=== PATIENT | male | born 1955 | race Caucasian/White ===

== ENCOUNTER 2022-10-25 10:55 | Emergency (ER) | payer MEDICARE, MEDICAID, SELFPAY ==
--- NOTE | ~2022-10-25 | XR_ITS ---
EXAMINATION: XR KNEE, LEFT CLINICAL INFORMATION: Left knee pain COMPARISON: None available. TECHNIQUE: Four views of the left knee. FINDINGS: There is mild narrowing cough medial compartment of left knee joint with marginal spurring at the endplates of lateral tibial plateau. There is narrowing of patellofemoral compartment but no joint effusion. There is diffuse osteopenia. Vascular calcifications seen in the soft tissues. XR/XR knee LT 4V IMPRESSION: Diffuse osteopenia and tricompartmental degenerative changes
--- NOTE | ~2022-10-25 | XR_ITS ---
EXAMINATION: XR KNEE, RIGHT CLINICAL INFORMATION: Pain COMPARISON: None available. TECHNIQUE: Four views of the right knee. FINDINGS: There is diffuse osteopenia and mild narrowing cough medial compartment of right knee joint. Marginal spurring seen at the medial and lateral tibial plateaus. There is narrowing of patellofemoral compartment. No joint effusion seen. No evidence of fractures. XR/XR knee RT 4V IMPRESSION: Tricompartmental degenerative changes more prominent in the medial and patellofemoral compartments.
--- NOTE | ~2022-10-25 | XR_ITS ---
EXAMINATION: XR LUMBOSACRAL SPINE CLINICAL INFORMATION: Low back pain COMPARISON: None available. TECHNIQUE: Three views of the lumbosacral spine. FINDINGS: There are 5 not ribs bearing vertebral bodies and lumbar spine. Vertebral bodies are well aligned there is mild narrowing cough T11-T12, T12-L1, L2-L3, and L4-L5. There is marginal spurring. Facets arthropathy. Pedicles are preserved, sacroiliac joints unremarkable and soft tissues reveal vascular calcifications. XR/XR lumbar spine 2-3V IMPRESSION: Multilevel degenerative changes in lumbar spine.
--- NOTE | 2022-10-25 11:11 | ED_ITS ---
HPI - Extremity Injury (Lower) General Chief Complaint: General Medical Stated Complaint: both knee pain back pain Time Seen by Provider: 10/25/22 11:31 Source: patient Mode of arrival: ambulatory Limitations: no limitations History of Present Illness HPI Narrative: 67-year-old male with long history of bilateral knee arthritis and back pain, patient sees orthopedic for his both knees and get periodic intra-articular steroid injections, the patient normally walk with a walker, was going upstairs when both knees give out patient landed on both knees complaining of bilateral knee pain and back pain. Related Data Previous Rx's Medication Instructions Recorded oxycodone 5 mg tablet 5 mg PO Q8H PRN pain #10 tabs 10/25/22 Allergies Allergy/AdvReac Type Severity Reaction Status Date / Time From BENADRYL Allergy Unknown WELTS Uncoded 11/10/19 18:12 Review of Systems Review of Systems: All other systems are reviewed and are negative Constitutional: Reports as per HPI and Reports no additional constitutional complaints Eyes: Reports as per HPI and Reports no additional eye complaints Reports system reviewed and no additional complaints, except as documented Cardiovascular: Reports as per HPI and Reports no additional cardiovascular complaints Respiratory: Reports as per HPI and Reports no additional respiratory complaints Gastrointestinal: Reports as per HPI and Reports no additional gastrointestinal complaints Genitourinary: Reports no additional female genitourinary complaints Musculoskeletal: Reports no additional musculoskeletal complaints Skin/Breast: Reports system reviewed and no additional complaints, except as docu Psychiatric: Reports no additional psychiatric complaints Endocrine: Reports no additional endocrine complaints Hematologic/Lymphatic: Reports no additional hematologic/lymphatic complaints Allergic/Immunologic: Reports no additional allergic/immunologic complaints Reports system reviewed and no additional complaints, except as documented and Reports Abnormal speech present [facility] Social History Social History Advance Directives: Yes Advance Directives Information Provided: No Advance Directives on File: No Physical Exam Vital Signs: Vital Signs: Last Vital Signs Temp 97.6 F 10/25/22 11:12 Pulse 67 10/25/22 11:12 Resp 18 10/25/22 11:12 BP 146/65 H 10/25/22 11:12 Pulse Ox 97 10/25/22 11:12 O2 Del Method Room Air 10/25/22 11:12 BMI result Body Mass Index 25.5 Vital signs have been reviewed as appeared to be correct. Blood pressure normal. Heart rate normal. Respiration rate normal. Temperature normal. Oxygen saturation normal. Appearance: Alert. Oriented X3. No acute distress. Head: Normal external exam. Normocephalic. Atraumatic. No Potter signs noted. No raccoon eyes noted Eyes: PERRLA. EOMI. Conjunctiva and sclera normal. Eyelids normal. ENT: TM's Normal. Pharynx normal. Uvula midline. Moist mucous membranes. No trismus noted. No drooling noted. No muffled voice noted. Neck: Normal inspection. Neck supple. FROM. No adenopathy. Thyroid Normal. No meningeal signs. No neck mass noted. CVS: Normal heart rate and rhythm. Heart sound normal. No murmurs noted. Pulses normal throughout. Respiratory: No respiratory distress. Painless inspiration. Breath sounds normal. No wheezes/rales/rhonchi noted. Chest nontender. No accessory muscle usage noted or decreased air movement noted. Abdomen: Soft and nontender. Bowel sounds normal in all 4 quadrants. No distention noted. No organomegaly noted. No visible injury noted. Back: No CVA tenderness. Full range of motion noted. Skin: Skin warm and dry. Normal skin color. Normal skin turgor. No rashes/lesions/lacerations noted. Extremities: No lower extremity edema. Extremities exhibit normal range of motion. Extremities nontender. Neuro: Oriented X 3. Cranial nerve exam: II-XII are grossly intact No motor deficit. No sensory deficit. Reflexes normal. Course Course Course Narrative: RME: 67yo M w/PMHx cirrhosis, anxiety, depression, DM, c/o bilateral knee and right sided low back pain x months worsening over the past few days. Took Tylenol at 9AM. Denies injury/fall. Admits knees give out. Denies urinary incontinence or retention Patient in wheelchair in triage XRs ordered Full HPI, ROS and PE to be performed by primary ED provider. Reevaluation(s) Reevaluation #1: Patient feels better after oxycodone, x-ray is showing degenerative disease that the patient is known to have, able to ambulate in the emergency department. Will discharge with few pills of oxycodone and follow-up with PCP. Time: 13:10 Medications Administered Discontinued Medications Generic Name Dose Route Start Last Admin Trade Name Lewq PRN Reason Stop Dose Admin Oxycodone HCl 5 mg 10/25/22 11:57 10/25/22 12:12 Oxycodone Hcl Immed Release 5 Mg Tablet PO 10/25/22 11:58 5 mg ONCE ONE Administration Medical Decision Making Differential Diagnosis Differential Diagnoses: The differential diagnosis associated with the presentation includes (DDD, fracture, ligamentous injury, sciatica, compression fracture.) Admission/Observation Consideration of admission/observation: Escalation of care including admission/observation considered Independent Interpretation I performed an independent interpretation of an: Plain X-Ray ( lumbar/right knee/left knee x-rays: No acute fracture with extensive DDD) Radiology Impression Discussion of test interpretation with radiology: I have reviewed the radiologist's reading. (Tricompartmental degenerative changes more prominent in the medial and patellofemoral compartments. Multilevel degenerative changes in lumbar spine. ) Chronic Conditions Patient?s care impacted by: Other (DDD) Discharge Plan Discharge Clinical Impression: Degenerative joint disease Patient Disposition: Home, Self-Care Instructions: Osteoarthritis (ED) Prescriptions: New oxycodone 5 mg tablet 5 mg PO Q8H PRN (Reason: pain) Qty: 10 0RF Rx Instructions: Partial Fill upon patient request. Referrals: Alysia Bailey MD [Primary Care Provider] -
[2022-10-25 11:12] VITALS: BP 146/65; PULSE 67; RESP 18; TEMP 36.4; O2SAT 97; BMI 25.5
[2022-10-25] MEDS: oxyCODONE HCl Immed Release 5 MG TABLET PO (12:12)
== END 2022-10-25 14:07 | disposition home or self-care (01) ==
PROVIDERS: Emergency Provider Emergency Medicine; PCP Internal Medicine
DX: M17.0 Bilateral primary osteoarthritis of knee (principal); M54.50 Low back pain, unspecified; E11.9 Type 2 diabetes mellitus without complications
CPT/HCPCS: 72100; 73564; 99283

== ENCOUNTER 2022-12-31 09:34 | Outpatient (AMB) | payer MEDICARE, SELFPAY ==
[2022-12-31 09:47] VITALS: BMI 25.1
--- NOTE | 2022-12-31 09:47 | MHC.OFFVIS ---
Intake Vital Signs 12/31/22 09:47 Height 5 ft 7 in Weight 160 lb BMI 25.1 Intake Visit Reasons: DISPUTE COORDINATOR-Back pain, right sciatica Intake Note: right hand dominant male presents today as a new patient for a back evaluation. Hx of O.A in is back and knees , cirrhosis . States he gets knee injections which did not help. Today he has concerns of pain in his T- spine and lumbar pain. States he has pain with prolong standing and sitting. Denies any treatment for his back. Allergies From BENADRYL Allergy (Unknown, Uncoded 12/31/22 09:53) [employer]cutronics Medication List - Last Reconciled 12/31/22 by Mindy Hallman MD bupropion HCl 150 mg PO QAM citalopram 40 mg PO QAM ferrous sulfate (FeroSul) 325 mg PO BID oxycodone 5 mg PO Q8H PRN pantoprazole 40 mg PO DAILY propranolol 20 mg PO BID HPI HPI Comments History of Present Illness Details History of cirrhosis, anxiety, depression, DM. Here with her ex-mother in law. More than 20 years of back pain, used to work in a factory, standing on concrete a lot. Daily back pain. Posterior mid back and going up to upper back. Same, constant, not any worse recently. Pain would also radiate to right side, mentions goes to toes. No numbness on feet. No foot drop. Uses cane or walker. Frequent falling. Treatment done so far: on pain medications therapy - just finished a course of PT in November, twice a week no back injections Last MRI in years. FORMERLY [facility] Medical History (Updated 12/31/22 @ 10:11 by Mindy Hallman MD) Degenerative arthritis of knee, bilateral Degenerative joint disease (DJD) of hip Chronic back pain Lumbar degenerative disc disease Back pain Social History (Updated 12/31/22 @ 09:53 by Nora Bustos [facility]) Current occupational status: retired and disabled Current occupation: rt hand Review of Systems Const All systems reviewed & are unremarkable except as noted in HPI and below Physical Exam Vital Signs: BMI result Body Mass Index 25.1 Constitutional: Patient appears to be in no acute distress, well nourished and well developed. Patient was appropriately conversant and oriented. Good historian. MSK: No specific abnormalities found on inspection of the spine and all extremities. No pain with light palpation over the lumbar area. Lumbar ROM was full. Bilateral hip, knee and ankle ROM WNL. No ligamentous laxity or crepitance. No increased effusion. Straight-leg raising test negative. FABERE test positive. Strength is 5/5 in all muscle groups tested. No increased tone noted. Needs cane. Neurological: Neurologic examination of the upper and lower extremities was nonfocal with intact sensation, muscle stretch reflexes and without focal motor deficits . St?s negative bilaterally. Babinski was down going bilaterally. Clonus was negative. Gait is non-antalgic without loss of balance. Results Reviewed Results Reviewed: I independently reviewed the results of the following: Lumbar x-ray showed loss of disc height at L4-5 I reviewed records from the following: ER visit [facility] Assessment & Plan Assessment & Plan (1) Lumbar degenerative disc disease: Code(s): M51.36 - Other intervertebral disc degeneration, lumbar region (2) Chronic back pain: Code(s): M54.9 - Dorsalgia, unspecified; G89.29 - Other chronic pain Qualifiers: Back pain location: low back pain Back pain laterality: bilateral Sciatica presence: with sciatica Sciatica laterality: sciatica of right side Qualified Code(s): M54.41 - Lumbago with sciatica, right side; G89.29 - Other chronic pain (3) Degenerative joint disease (DJD) of hip: Code(s): M16.9 - Osteoarthritis of hip, unspecified Qualifiers: Osteoarthritis type: primary Laterality: bilateral Qualified Code(s): M16.0 - Bilateral primary osteoarthritis of hip (4) Degenerative arthritis of knee, bilateral: Code(s): M17.0 - Bilateral primary osteoarthritis of knee Qualifiers: Osteoarthritis type: primary Qualified Code(s): M17.0 - Bilateral primary osteoarthritis of knee Plan Chronic back pain with radiation to right leg. Xrays show spondylosis and disc space narrowing on L4-5. Also history of hip and knee arthritis. Patient had undergone adequate conservative management including PT without improvement of condition. It would be reasonable to obtain further imaging such as MRI. An MRI would help rule out any serious condition, guide treatment and assess prognosis for recovery. Specifically ruling out spinal stenosis or L4-5 disc herniation. Patient is interested in pursuing injections if appropriate after MRI. Assessment and plan discussed with patient, and patient was agreeable. All questions were answered thoroughly. Follow-up after MRI. Mindy Hallman MD, EMANUEL Board Certified, [place] [employer] and Rehabilitation (ABPMR) Board Certified, [place] [employer] Electrodiagnostic [employer] (ABEM) Orders: Orders XR lumbar spine 2-3V Today M54.9 - Dorsalgia, unspecified MR lumbar spine wo con Today M51.36 - Other intervertebral disc degeneration, lumbar region Coding Level of Care Code New Pt Level 4 (53753) Diagnoses Lumbar degenerative disc disease M51.36 Chronic bilateral low back pain with right-sided sciatica M54.41; G89.29 Back pain location: low back pain Back pain laterality: bilateral Sciatica presence: with sciatica Sciatica laterality: sciatica of right side Primary osteoarthritis of both hips M16.0 Osteoarthritis type: primary Laterality: bilateral Primary osteoarthritis of both knees M17.0 Osteoarthritis type: primary
== END 2022-12-31 10:17 | disposition home or self-care (01) ==
PROVIDERS: PCP Internal Medicine; Visit Provider Physical Medicine & Rehabilitation
DX: M51.36 Other intervertebral disc degeneration, lumbar region (principal); M54.41 Lumbago with sciatica, right side; G89.29 Other chronic pain; M16.0 Bilateral primary osteoarthritis of hip; M17.0 Bilateral primary osteoarthritis of knee
CPT/HCPCS: 99204

== ENCOUNTER 2022-12-31 10:06 | Outpatient (REF) | payer MEDICARE, OTHER, SELFPAY ==
--- NOTE | ~2022-12-31 | XR_ITS ---
EXAMINATION: XR LUMBOSACRAL SPINE CLINICAL INFORMATION: Back pain COMPARISON: October 25, 2022 TECHNIQUE: Three views of the lumbosacral spine. FINDINGS: The bones are diffusely demineralized. Degenerative changes in the imaged lower thoracic spine. Levoscoliosis of the lumbar spine. Facet arthropathy. Advanced atherosclerotic aortoiliac calcifications. Advanced multilevel degenerative changes in the lumbar spine with loss of disc space height most notable at L2-L3, L3-L4, and L4-L5. XR/XR lumbar spine 2-3V IMPRESSION: Advanced multilevel degenerative changes in the lumbar spine. MRI should be considered for further evaluation if there is concern for fracture or other pathology.
== END 2022-12-31 10:07 | disposition home or self-care (01) ==
LOC: HO.HOSX 10:06
PROVIDERS: Visit Provider Physical Medicine & Rehabilitation
DX: M51.36 Other intervertebral disc degeneration, lumbar region (principal); G89.29 Other chronic pain; M54.41 Lumbago with sciatica, right side; M16.0 Bilateral primary osteoarthritis of hip; M17.0 Bilateral primary osteoarthritis of knee; Z79.899 Other long term (current) drug therapy; Z79.891 Long term (current) use of opiate analgesic
CPT/HCPCS: 72100; 99202

== ENCOUNTER 2023-02-17 10:02 | Outpatient (REF) | payer MEDICARE, MEDICAID, SELFPAY | END 2023-02-17 10:03 | disposition home or self-care (01) | LOC: HO.MRI 10:02 | PROVIDERS: PCP Internal Medicine; Visit Provider Physical Medicine & Rehabilitation | DX: M51.36 Other intervertebral disc degeneration, lumbar region (principal) | CPT/HCPCS: 72148 ==

== ENCOUNTER 2023-03-25 11:58 | Outpatient (AMB) | payer MEDICARE, MEDICAID, SELFPAY ==
--- NOTE | 2023-03-25 12:02 | A.OFFVIS_ITS ---
Intake Intake Visit Reasons: EVALUATE L4-5 DISC FOR HERNIATION SPINAL STENOSIS Intake Note: Jose Juan is a 67 year old male who presents today for an MRI review of his Lumbar spine Allergies From BENADRYL Allergy (Unknown, Uncoded 03/25/23 12:02) WELTS Medication List - Last Reconciled 03/25/23 by Mindy Hallman MD bupropion HCl 150 mg PO QAM citalopram 40 mg PO QAM ferrous sulfate (FeroSul) 325 mg PO BID oxycodone 5 mg PO Q8H PRN pantoprazole 40 mg PO DAILY propranolol 20 mg PO BID HPI HPI Comments History of Present Illness Details History of cirrhosis, anxiety, depression, DM. More than 20 years of back pain, used to work in a factory, standing on concrete a lot. Daily back pain. Posterior mid back and going up to upper back. Same, constant, not any worse recently. Pain would also radiate to right side, mentions goes to toes. No numbness on feet. No foot drop. Uses cane or walker. Frequent falling. Treatment done so far: on pain medications therapy - just finished a course of PT in November, twice a week no back injections I did speak to him over the phone after the MRI. MRI shows severe spinal stenosis L3-4. And a disc protrusion L4-5 causing moderate spinal stenosis. No new events since last seen. Denies incontinence. Reports claudication. Pain worse when waking up from bed. Last 4 days been worse pain due to weather. COUNTS INCLUDE 234 BEDS AT THE [facility] Medical History (Updated 03/25/23 @ 12:16 by Mindy Hallman MD) Lumbar spinal stenosis Degenerative arthritis of knee, bilateral Degenerative joint disease (DJD) of hip Chronic back pain Lumbar degenerative disc disease Back pain Social History (Updated 12/31/22 @ 09:53 by Nora Bustos [facility]) Current occupational status: retired and disabled Current occupation: rt hand Physical Exam Constitutional: Patient appears to be in no acute distress, well nourished and well developed. Patient was appropriately conversant and oriented. Good historian. MSK: No specific abnormalities found on inspection of the spine and all extremities. No pain with light palpation over the lumbar area. Lumbar ROM was full. Bilateral hip, knee and ankle ROM WNL. No ligamentous laxity or crepitance. No increased effusion. Straight-leg raising test negative. FABERE test positive. Strength is 5/5 in all muscle groups tested. No increased tone noted. Needs cane. Neurological: Neurologic examination of the upper and lower extremities was nonfocal with intact sensation, muscle stretch reflexes and without focal motor deficits . St?s negative bilaterally. Babinski was down going bilaterally. Clonus was negative. Gait is non-antalgic without loss of balance, but short steps. Results Reviewed Results Reviewed: Independently reviewed MRI images with patient. See above. Date of Service: 02/17/23 Procedure(s): MR lumbar spine wo con Accession Number(s): [id number] cc: Mindy Adler; Alysia Bailey MD~ EXAMINATION: MR LUMBAR SPINE WITHOUT CONTRAST CLINICAL INFORMATION: Evaluate for L4-5 disc herniation, evaluate spinal stenosis. COMPARISON: None available. TECHNIQUE: MRI of the lumbar spine was obtained using routine sequences without contrast. FINDINGS: Minimal levocurvature of the lumbar spine. Mild retrolisthesis at T12-L1. Acute endplate changes at T12-L1 anteriorly, L3-4 posteriorly, and L2-3 posteriorly with suggestion of acute Schmorl's nodes at these levels. Otherwise, no acute bone marrow abnormality. The vertebral body heights are preserved. Multilevel disc desiccation and disc height loss. Multilevel endplate osteophytosis. The visualized spinal cord is normal in caliber. No abnormal cord signal. The conus medullaris terminates at L1-2. T11-12: Partially imaged left subarticular disc extrusion migrating along the inferior endplate of T11. There is suggestion of severe left lateral recess stenosis. There is at least vgsu-cr-igwwobuu left eccentric spinal canal stenosis with mass effect on the cord. Mild left neural foraminal narrowing. T12-L1: Diffuse disc bulge. No significant spinal canal stenosis. Ltzmlysa-yb-jaixbp left and moderate right neural foraminal narrowing. L1-2: Diffuse disc bulge with superimposed left paracentral disc protrusion. No significant spinal canal or neural foraminal narrowing. L2-3: Diffuse disc bulge, ligamentum flavum hypertrophy, and bilateral facet arthrosis. Qowv-nr-jjqvvxeb spinal canal stenosis. Mild left neural foraminal narrowing. L3-4: Diffuse disc bulge, ligamentum flavum hypertrophy, and bilateral facet arthrosis. Severe spinal canal stenosis with impingement of the cauda equina nerve roots. Gvzudyys-ut-xmlele left greater than right neural foraminal narrowing with the disc abutting the exiting L3 nerve roots bilaterally. L4-5: Diffuse disc bulge with superimposed central disc protrusion. Ligamentum flavum hypertrophy and bilateral facet arthrosis. Zykh-gl-comthbvm spinal canal stenosis with mass effect on the cauda equina nerve roots. Moderate-to- severe right and ixqe-fo-swmswydy left neural foraminal narrowing with the disc abutting the exiting L4 nerve roots bilaterally. L5-S1: Diffuse disc bulge and bilateral facet arthrosis. No significant spinal canal stenosis. Gcxh-xq-oasruovc bilateral neural foraminal narrowing with the disc abutting the exiting L5 nerve roots. The paravertebral soft tissues are unremarkable. MR/MR lumbar spine wo con IMPRESSION: Multilevel degenerative changes of the lumbar spine as detailed above. -At L3-L4, there is severe spinal canal stenosis impinging the cauda equina nerve roots with associated moderate to severe left greater than right neural foraminal narrowing. -At L4-L5, there is knsl-ut-yzlnujbx spinal canal stenosis with associated udfdowvk-oc-joxiln right and mild-to- moderate left neural foraminal narrowing with the disc abutting the exiting L4 nerve roots bilaterally. -At T11-T12, there is a partially imaged left subarticular disc extrusion migrating along the inferior endplate of T11 with suggestion of severe left lateral recess stenosis. There is at least phyj-wk-kwsptops left eccentric spinal canal stenosis with mass effect on the cord. Assessment & Plan Assessment & Plan (1) Lumbar spinal stenosis: Code(s): M48.061 - Spinal stenosis, lumbar region without neurogenic claudication Qualifiers: Neurogenic claudication status: with neurogenic claudication Qualified Code(s): M48.062 - Spinal stenosis, lumbar region with neurogenic claudication (2) Lumbar disc herniation: Code(s): M51.26 - Other intervertebral disc displacement, lumbar region Plan Chronic back pain. MRI shows disc herniation L4-5, new? And severe spinal stenosis L3-4. Symptoms mostly claudication. No neurologic findings on exam. Significant past medical history which probably makes him a poor surgical candidate. I would still appreciate Neurosurgery's opinion. He is seeing them on Thursday. If deemed non surgical, may benefit from referral to pain management for epidural injection. Discussed with patient regarding injections and he would be open to those. Assessment and plan discussed with patient, and patient was agreeable. All questions were answered thoroughly. Mindy Hallman MD, EMANUEL Board Certified, [place] [employer] and Rehabilitation (ABPMR) Board Certified, [place] [employer] Electrodiagnostic Medicine (ABEM) Coding Level of Care Code Est Pt Level 3 (12556) Diagnoses Spinal stenosis of lumbar region with neurogenic claudication M48.062 Neurogenic claudication status: with neurogenic claudication Lumbar disc herniation M51.26
== END 2023-03-25 12:19 | disposition home or self-care (01) ==
PROVIDERS: PCP Internal Medicine; Visit Provider Physical Medicine & Rehabilitation
DX: M48.062 Spinal stenosis, lumbar region with neurogenic claudication (principal); M51.26 Other intervertebral disc displacement, lumbar region
CPT/HCPCS: 99213

== ENCOUNTER → 2023-03-25 11:58 | Outpatient (BNVA) | payer MEDICARE, MEDICAID, SELFPAY | PROVIDERS: PCP Internal Medicine; Visit Provider Physical Medicine & Rehabilitation | DX: M48.062 Spinal stenosis, lumbar region with neurogenic claudication (principal); M51.26 Other intervertebral disc displacement, lumbar region | CPT/HCPCS: 99212 ==

== ENCOUNTER 2023-03-27 10:30 | Outpatient (AMB) | payer MEDICARE, MEDICAID, SELFPAY ==
--- NOTE | 2023-03-27 11:22 | A.OFFVIS_ITS ---
Intake Intake Visit Reasons: severe spinal stenosis Allergies From [facility] Allergy (Unknown, Uncoded 03/25/23 12:02) [facility] Medical History (Updated 03/25/23 @ 12:16 by Mindy Hallman MD) Lumbar spinal stenosis Degenerative arthritis of knee, bilateral Degenerative joint disease (DJD) of hip Chronic back pain Lumbar degenerative disc disease Back pain Social History (Updated 12/31/22 @ 09:53 by Nora Bustos [facility]) Current occupational status: retired and disabled Current occupation: rt hand Assessment & Plan Assessment & Plan (1) Lumbar spinal stenosis: Code(s): M48.061 - Spinal stenosis, lumbar region without neurogenic claudication Qualifiers: Neurogenic claudication status: with neurogenic claudication Qualified Code(s): M48.062 - Spinal stenosis, lumbar region with neurogenic claudication Plan Dear Dr Adler, Thank you for referring MR Taveras to our office today. He has a 67-year-old gentleman with a history of remote alcohol abuse, liver disease, cirrhosis, thrombocytopenia who presents today for evaluation of a multiyear history of b ack pain and bilateral leg pain. The leg pain does go down into the back of his hamstrings and buttock region and he describes it as a sciatic like pain. The symptoms are aggravated with standing walking, however he has very bad knees so his ability to ambulate is limited already. He does use a shopping cart in the grocery store. It does seem to help. His toes will go numb as well mostly in t he top of his foot. He has not yet undergone cortisone injections but has been doing therapy 3 times a week. He takes Tylenol and limited doses because his liver issue. He can not take anti-inflammatories because of extensive GI issues. He comes today with an MRI showing severe stenosis at L3-4. PMH: He has an extensive medical history, mostly related to liver disease related to drinking alcohol. He quit drinking 18 years ago but has been left with cirrhosis and thrombocytopenia as an after effect. I obtain this information from [place] [facility] records. Also was diagnosed with diabetes, but his last A1c was around 5 without taking any medications. History of anxiety and depression, GERD, esophageal varices. At 1 point he had procedure to fix the varices after needing 10 units of blood transfused. History of gastric antral vascular ectasia, carpal tunnel syndrome History of shoulder surgery, hammertoe surgery, knee arthritis Social hx: He does not smoke or drink, he quit these things about 18 years ago. He does smoke marijuana daily. Medications: Propranolol, heating pads, bupropion, pantoprazole, citalopram, Tylenol, lactulose, vitamin-C and vitamin-D Allergies: Aspirin and Benadryl Physical exam: He is awake alert oriented no acute distress, he demonstrates some mild hand weakness, but outside of that he has normal strength. His iliopsoas strength is somewhat limited by pain but with reinforcement he has full strength. Reflexes are normal in the upper extremity, no Ashli sign, no clonus. He has absent reflexes at the patella. Positive Tinel sign. He does not have any scleral icterus. He has not jaundice. no abdominal distention etc. to suggest ascites. Lower extremities are without edema. Imaging review: Lumbar MRI done at [place] shows severe stenosis at L3-4. He has other mild degenerative changes throughout the lumbar spine but L3-4 is the most significant finding. Impression: 67-year-old gentleman presents with the midline lower lumbar pain with bilateral radiating pain into his buttocks down into his hamstrings with some numbness of his feet with standing and walking. It does go away when he sits down. The back pain can be present if he sitting for too long. Has good strength in his lower extremities with absent reflexes at the patella. I think he is symptomatic from the severe lumbar stenosis. Typically this is something Dr. Jaramillo would offer simple lumbar decompression assuming there is no instability. I will order x-rays to evaluate with flexion-extension views. However, given the extent of his liver disease being unknown, and his history of thrombocytopenia we have to use caution with this gentleman. From the [place] records I can see that his last platelet count was in the 90s but typically he historically runs in the 50s to 60s which is likely too low to consider surgery. I do not see any the Hallmark signs of cirrhosis on physical exam, but we would need some kind of understanding from the GI team either [place] or here as to whether he is fit enough to even undergo procedure. I will talk with Dr. Jaramillo and review his films with him to see if there is anything we can do for this gentleman. The patient himself is looking to avoid surgery and would like to just simply consider an injection. I am not sure how much value there would be an this given the severity of the stenosis. I will defer this decision to you based on your experience. Thank you for allowing us to care for your patient. The total time spent with this visit with this patient was 45 minutes reviewing history, physical exam, lumbar imaging review, and implementation of treatment plan or further diagnostic testing Mono Jaramillo MD,PhD [facility] Orders: Orders XR lumbar spine 4V min Today M48.061 - Spinal stenosis, lumbar region without neurogenic claudication Coding Level of Care Code New Pt Level 4 (24922) Diagnoses Spinal stenosis of lumbar region with neurogenic claudication M48.062 Neurogenic claudication status: with neurogenic claudication
== END 2023-03-27 12:02 | disposition home or self-care (01) ==
PROVIDERS: PCP Internal Medicine; Referring Provider Physical Medicine & Rehabilitation; Visit Provider Physician Assistant
DX: M48.062 Spinal stenosis, lumbar region with neurogenic claudication (principal)
CPT/HCPCS: 99204

== ENCOUNTER 2023-03-27 10:30 | Outpatient (REF) | payer MEDICARE, MEDICAID, SELFPAY ==
--- NOTE | ~2023-03-27 | XR_ITS ---
EXAMINATION: XR LUMBOSACRAL SPINE WITH OBLIQUES CLINICAL INFORMATION: Lumbar spinal stenosis without neurogenic claudication. COMPARISON: Radiographs dated 12/31/2022; portions of the MRI lumbar spine dated 02/17/2023. TECHNIQUE: AP and lateral (neutral, flexion and extension) views of the lumbosacral spine are submitted. FINDINGS: There is bony demineralization. Vertebral body heights and alignment are normal. There is mild posterior disc space narrowing extending from L2-L3 through L4-L5. The remaining disc spaces are relatively well-maintained. No acute fracture or spondylolisthesis is seen. No instability is seen with flexion or extension. There is multi-level thoracolumbar anterior spondylosis. The posterior elements are intact. The paravertebral soft tissues are unremarkable. There are aortoiliac atherosclerotic calcifications. XR/XR lumbar spine 4V min IMPRESSION: 1. There is mild degenerative disc disease extending from L2-L3 through L4-L5. 2. No acute fracture or spondylolisthesis is seen. There is no instability with flexion or extension. 3. There is multi-level thoracolumbar spondylosis.
== END 2023-03-27 10:31 | disposition home or self-care (01) ==
LOC: HO.HOSX 10:30
PROVIDERS: PCP Internal Medicine; Visit Provider Physician Assistant
DX: M48.061 Spinal stenosis, lumbar region without neurogenic claudication (principal)
CPT/HCPCS: 72110; 99202